=== PATIENT | female | born 1955 | race Caucasian/White ===

== ENCOUNTER 2017-08-11 09:06 | Inpatient (IN) | payer MEDICAID ==
[~2017-08-11] VITALS: Ht 170.2 cm; Wt 60.7 kg
[~2017-08-11 09:06] MED LIST: AMIT50TA3 PO; ARIP1TAB7 PO; ATOR10TA PO; CITA-36 PO; CLON1TAB3 PO; FENO134C PO; IBUP800T24 PO; LAMO150T2 PO; LORA-352 PO
[2017-08-11 10:40] LABS: Basophils # (auto) 0 uL; Basophils % (auto) 0.2 % (0.0-2.0); Eosinophils # (auto) 0.1 uL; Eosinophils % (auto) 0.7 % (0.0-7.0); Hematocrit 37.6 % (36.0-46.0); Hemoglobin 12.9 g/dL (12.2-16.2); Lymphocytes % (auto) 26.2 % (10.0-50.0); Mean Corpuscular Hemoglobin 32.3 pg (28.0-32.0); Mean Corpuscular Hgb Conc. 34.3 g/dL (32.0-36.0); Mean Corpuscular Volume 94.1 fL (80.0-100.0); Monocytes # (auto) 0.7 uL; Monocytes % (auto) 8.4 % (0.0-12.0); Neutrophils % (auto) 64.5 % (37.0-80.0); Nucleated Red Blood Cells % 0.2 %; Platelet Count (auto) 101 10^3/uL (140-450); Red Cell Distribution Width 13.4 % (11.8-14.3); White Blood Cell 7.8 10^3/uL (4.4-10.8)
[2017-08-11 10:42] LABS: Alanine Aminotransferase 43 U/L (13-56); Albumin 3.6 g/dL (3.4-5.0); Alkaline Phosphatase 87 U/L (45-117); Anion Gap 9 (5-15); Aspartate Aminotransferase 92 U/L (15-37); BUN/Creatinine Ratio 8.9; Bilirubin, Total 0.3 mg/dL (0.2-1.0); Blood Urea Nitrogen 8 mg/dL (7-18); Calcium 8.6 mg/dL (8.5-10.1); Carbon Dioxide 26 mmol/L (21-32); Chloride 104 mmol/L (98-107); GFR African American 82 mL/min; GFR Non-African American 68 mL/min; Glucose 121 mg/dL (74-106); Magnesium 2.1 mg/dL (1.6-2.6); Sodium 139 mmol/L (136-145); Total Protein 6.7 g/dL (6.4-8.2)
[2017-08-11 11:46] LABS: Alcohol, Urine < 3.0 mg/dL (0-5); Amphetamine Screen, Urine NEGATIVE (NEGATIVE); Barbiturate Scree,Urine NEGATIVE (NEGATIVE); Benzodiazephine Screen, Urine POSITIVE (NEGATIVE); Cannabinoid Screen, Urine POSITIVE (NEGATIVE); Cocaine Screen, Urine NEGATIVE (NEGATIVE); Opiate Scree,Urine NEGATIVE (NEGATIVE); Phencyclidine Screen, Urine NEGATIVE (NEGATIVE)
[2017-08-11] MEDS ORDERED: POTASSIUM CHLORIDE 8 MEQ TAB PO ONE (12:00)
[2017-08-11] MEDS ORDERED: HYDROcodone-ACET 5/325MG TAB PO PRN (12:15)
[2017-08-11] MEDS ORDERED: ONDANSETRON HCL 4 MG/2 ML VIAL IV PRN (12:15)
[2017-08-11] MEDS ORDERED: ACETAMINOPHEN 325 MG TAB PO PRN (12:15)
[2017-08-11] MEDS ORDERED: FAMOTIDINE 20 MG TAB PO ONE (12:15)
[2017-08-11] MEDS ORDERED: cefTRIAXone 1GM/10ml IVPUSH 10 ML IV ONE (12:15)
[2017-08-11] MEDS ORDERED: MORPHINE SULFATE 4 MG/ML SYR/VIAL IV PRN ×2 (12:15)
[2017-08-11] MEDS ORDERED: NITROGLYCERIN 0.4 MG SL TAB SL PRN (12:15)
[2017-08-11] MEDS ORDERED: DOCUSATE SOD 100 MG CAP PO PRN (12:15)
[2017-08-11 12:57] LABS: Urine Bacteria MANY /hpf (None Seen); Urine Blood Negative /uL (Negative); Urine Mucus FEW (None Seen); Urine Specific Gravity 1.011 (1.001-1.035); Urine WBC 48 /hpf (0 - 5)
[2017-08-11] MEDS: SODIUM CHLOR 0.9% PF (SALINE LOCK) 10ML VIAL/SYR IV SCH ×2 (14:02→21:35)
[2017-08-11] MEDS ORDERED: TEMAZEPAM 15 MG CAP PO PRN (16:00)
[2017-08-11 16:24] LABS: Folate (Folic Acid) 14.56 ng/mL (5.38-24)
[2017-08-11 17:00] VITALS: BP 114/71
[2017-08-11 17:36] VITALS: BP 114/71
[2017-08-11] MEDS ORDERED: DEXTROSE (50%) 50ML SYRG IV PRN (18:00)
[2017-08-11] MEDS: VALPROIC ACID 250 MG/5 ML ORAL SOLN PO SCH (21:35)
[2017-08-11] MEDS: clonazePAM 0.5 MG TAB PO SCH (21:36)
[2017-08-11] MEDS: FAMOTIDINE 20 MG TAB PO SCH (21:36)
[2017-08-11] MEDS: traZODone HCL 50 MG TAB PO SCH (21:36)
[2017-08-11] MEDS: ACCU-CHEK COMFORT CURVE STRIP VI SCH (21:38)
[2017-08-11 22:00] VITALS: BP 108/64
[2017-08-11] MEDS: InsuLIN REG 1unit/0.01ml Soln (100units/ml) SC SCH (22:00)
[2017-08-11] MEDS ORDERED: ACET-6 PO (23:57)
[2017-08-11] MEDS ORDERED: VALP250S16 PO (23:58)
[2017-08-12] MEDS ORDERED: TRAZ50TA2 PO (00:01)
[2017-08-12] MEDS ORDERED: TEMA15CA PO (00:02)
[2017-08-12] MEDS ORDERED: FLUT0.05 NAS (00:04)
[2017-08-12] MEDS ORDERED: CYAN1TAB14 PO (00:04)
[2017-08-12] MEDS ORDERED: PAR20T PO (00:04)
[2017-08-12 05:00] VITALS: BP 122/66
[2017-08-12 06:42] LABS: Basophils # (auto) 0 uL; Basophils % (auto) 0.4 % (0.0-2.0); Eosinophils # (auto) 0.3 uL; Eosinophils % (auto) 3.6 % (0.0-7.0); Hematocrit 40.5 % (36.0-46.0); Hemoglobin 13.8 g/dL (12.2-16.2); Lymphocytes # (auto) 3.8 uL; Lymphocytes % (auto) 47.2 % (10.0-50.0); Mean Corpuscular Hemoglobin 32.5 pg (28.0-32.0); Mean Corpuscular Hgb Conc. 34.1 g/dL (32.0-36.0); Mean Corpuscular Volume 95.2 fL (80.0-100.0); Monocytes # (auto) 0.7 uL; Monocytes % (auto) 9.3 % (0.0-12.0); Neutrophils # (auto) 3.2 uL; Neutrophils % (auto) 39.5 % (37.0-80.0); Nucleated Red Blood Cells % 0.2 %; Platelet Count (auto) 117 10^3/uL (140-450); Red Blood Cells 4.26 10^6/uL (4.0-5.20); Red Cell Distribution Width 13.4 % (11.8-14.3)
[2017-08-12 07:07] LABS: Albumin 3.7 g/dL (3.4-5.0); BUN/Creatinine Ratio 8.9; Bilirubin, Total 0.3 mg/dL (0.2-1.0); Calcium 8.8 mg/dL (8.5-10.1); Potassium 3.9 mmol/L (3.5-5.1); Total Protein 7.2 g/dL (6.4-8.2)
[2017-08-12] MEDS: InsuLIN REG 1unit/0.01ml Soln (100units/ml) SC SCH ×4 (07:07→22:00)
[2017-08-12] MEDS: SODIUM CHLOR 0.9% PF (SALINE LOCK) 10ML VIAL/SYR IV SCH ×3 (07:07→22:04)
[2017-08-12] MEDS: ACCU-CHEK COMFORT CURVE STRIP VI SCH ×4 (07:07→22:04)
[2017-08-12] MEDS: cefTRIAXone 1GM/10ml IVPUSH 10 ML IV SCH (09:52)
[2017-08-12] MEDS: FAMOTIDINE 20 MG TAB PO SCH ×2 (09:53→21:55)
[2017-08-12] MEDS: clonazePAM 0.5 MG TAB PO SCH ×2 (09:53→21:55)
[2017-08-12] MEDS: VALPROIC ACID 250 MG/5 ML ORAL SOLN PO SCH ×2 (09:53→21:54)
[2017-08-12] MEDS: MULTIPLE VITAMIN TAB PO SCH (09:53)
[2017-08-12] MEDS: lamoTRIgine 100 MG TAB PO SCH (09:53)
[2017-08-12] MEDS: PARoxetine 20 MG TAB PO SCH (09:55)
[2017-08-12] MEDS ORDERED: MORPHINE SULFATE 4 MG/ML SYR/VIAL ONE (10:07)
[2017-08-12] MEDS ORDERED: HALOPERIDOL LACTATE 5 MG/ML INJ VIAL IV PRN (10:45)
[2017-08-12] MEDS ORDERED: HALOPERIDOL LACTATE 5 MG/ML INJ VIAL IM ONE (11:00)
[2017-08-12] MEDS ORDERED: LORazepam 0.5 MG TAB PO ONE (11:15)
[2017-08-12] MEDS ORDERED: LORazepam 0.5 MG TAB PO PRN (11:15)
[2017-08-12] MEDS ORDERED: LORazepam 2MG/ML-1ML VIAL IV ONE (13:30)
[2017-08-12] MEDS: traZODone HCL 50 MG TAB PO SCH (21:55)
[2017-08-12 22:38] VITALS: BP 97/62
[2017-08-13 05:34] VITALS: BP 97/63
[2017-08-13 05:56] LABS: Basophils # (auto) 0 uL; Basophils % (auto) 0.4 % (0.0-2.0); Eosinophils # (auto) 0.3 uL; Eosinophils % (auto) 4.6 % (0.0-7.0); Hematocrit 34.5 % (36.0-46.0); Hemoglobin 11.8 g/dL (12.2-16.2); Lymphocytes # (auto) 2.7 uL; Lymphocytes % (auto) 49.4 % (10.0-50.0); Mean Corpuscular Hemoglobin 32.8 pg (28.0-32.0); Mean Corpuscular Hgb Conc. 34.4 g/dL (32.0-36.0); Mean Corpuscular Volume 95.4 fL (80.0-100.0); Monocytes # (auto) 0.6 uL; Monocytes % (auto) 11.4 % (0.0-12.0); Neutrophils # (auto) 1.9 uL; Neutrophils % (auto) 34.2 % (37.0-80.0); Nucleated Red Blood Cells % 0.1 %; Platelet Count (auto) 94 10^3/uL (140-450); Red Blood Cells 3.61 10^6/uL (4.0-5.20); Red Cell Distribution Width 13.7 % (11.8-14.3); White Blood Cell 5.5 10^3/uL (4.4-10.8)
[2017-08-13] MEDS: ACCU-CHEK COMFORT CURVE STRIP VI SCH ×2 (06:34→11:53)
[2017-08-13] MEDS: SODIUM CHLOR 0.9% PF (SALINE LOCK) 10ML VIAL/SYR IV SCH ×3 (06:34→22:00)
[2017-08-13] MEDS: InsuLIN REG 1unit/0.01ml Soln (100units/ml) SC SCH ×2 (06:34→11:30)
[2017-08-13 06:38] LABS: BUN/Creatinine Ratio 7.4; Bilirubin, Total 0.2 mg/dL (0.2-1.0); Calcium 8.2 mg/dL (8.5-10.1); Potassium 3.4 mmol/L (3.5-5.1); Total Protein 5.9 g/dL (6.4-8.2)
[2017-08-13] MEDS: VALPROIC ACID 250 MG/5 ML ORAL SOLN PO SCH ×2 (09:55→22:47)
[2017-08-13] MEDS: cefTRIAXone 1GM/10ml IVPUSH 10 ML IV SCH (09:55)
[2017-08-13] MEDS: clonazePAM 0.5 MG TAB PO SCH ×2 (09:56→22:47)
[2017-08-13] MEDS: MULTIPLE VITAMIN TAB PO SCH (09:56)
[2017-08-13] MEDS: FAMOTIDINE 20 MG TAB PO SCH ×2 (09:56→22:47)
[2017-08-13] MEDS: lamoTRIgine 100 MG TAB PO SCH (09:56)
[2017-08-13] MEDS: PARoxetine 20 MG TAB PO SCH (09:57)
[2017-08-13 10:52] VITALS: BP 101/68
[2017-08-13 13:00] VITALS: BP 96/67
[2017-08-13] MEDS ORDERED: POTASSIUM CHL 10 Meq TABLET PO ONE (15:30)
[2017-08-13 17:00] VITALS: BP 100/66
[2017-08-13 22:00] VITALS: BP 117/66
[2017-08-13] MEDS: CEPHALEXIN 250 MG CAP PO SCH (22:47)
[2017-08-13] MEDS: traZODone HCL 50 MG TAB PO SCH (22:48)
[2017-08-14 05:00] VITALS: BP 105/58
[2017-08-14] MEDS: SODIUM CHLOR 0.9% PF (SALINE LOCK) 10ML VIAL/SYR IV SCH ×3 (06:00→22:00)
[2017-08-14] MEDS: VALPROIC ACID 250 MG/5 ML ORAL SOLN PO SCH (11:12)
[2017-08-14] MEDS: PARoxetine 20 MG TAB PO SCH (11:13)
[2017-08-14] MEDS: lamoTRIgine 100 MG TAB PO SCH (11:13)
[2017-08-14] MEDS: CEPHALEXIN 250 MG CAP PO SCH (11:13)
[2017-08-14] MEDS: MULTIPLE VITAMIN TAB PO SCH (11:13)
[2017-08-14] MEDS: FAMOTIDINE 20 MG TAB PO SCH ×2 (11:14→22:00)
[2017-08-14] MEDS: clonazePAM 0.5 MG TAB PO SCH (11:14)
[2017-08-14 17:00] VITALS: BP 113/53
[2017-08-14] MEDS ORDERED: HALOPERIDOL LACTATE 5 MG/ML INJ VIAL IM PRN (18:15)
[2017-08-14] MEDS ORDERED: HALOPERIDOL LACTATE 5 MG/ML INJ VIAL IV PRN (18:15)
[2017-08-14 22:00] VITALS: BP 99/54
[2017-08-15] MEDS: CEPHALEXIN 250 MG CAP PO SCH ×3 (00:10→21:27)
[2017-08-15] MEDS: traZODone HCL 50 MG TAB PO SCH ×2 (00:10→21:27)
[2017-08-15] MEDS: clonazePAM 0.5 MG TAB PO SCH ×3 (00:11→21:27)
[2017-08-15 05:01] VITALS: BP 114/56
[2017-08-15 09:11] VITALS: BP 115/65
[2017-08-15] MEDS: SODIUM CHLOR 0.9% PF (SALINE LOCK) 10ML VIAL/SYR IV SCH ×3 (10:06→21:28)
[2017-08-15] MEDS: FAMOTIDINE 20 MG TAB PO SCH ×2 (10:07→21:26)
[2017-08-15] MEDS: MULTIPLE VITAMIN TAB PO SCH (10:07)
[2017-08-15] MEDS: VALPROIC ACID 250 MG/5 ML ORAL SOLN PO SCH (10:07)
[2017-08-15] MEDS: PARoxetine 20 MG TAB PO SCH (10:08)
[2017-08-15] MEDS: lamoTRIgine 100 MG TAB PO SCH (10:09)
[2017-08-15 13:11] VITALS: BP 115/61
[2017-08-15 16:40] VITALS: BP 120/61
[2017-08-15 22:00] VITALS: BP 106/53
[2017-08-16 05:00] VITALS: BP 81/59
[2017-08-16] MEDS: SODIUM CHLOR 0.9% PF (SALINE LOCK) 10ML VIAL/SYR IV SCH ×3 (06:19→21:53)
[2017-08-16] MEDS: VALPROIC ACID 250 MG/5 ML ORAL SOLN PO SCH (08:35)
[2017-08-16] MEDS: lamoTRIgine 100 MG TAB PO SCH (08:35)
[2017-08-16] MEDS: MULTIPLE VITAMIN TAB PO SCH (08:35)
[2017-08-16] MEDS: PARoxetine 20 MG TAB PO SCH (08:36)
[2017-08-16] MEDS: clonazePAM 0.5 MG TAB PO SCH ×2 (08:36→21:47)
[2017-08-16] MEDS: FAMOTIDINE 20 MG TAB PO SCH ×2 (08:36→21:47)
[2017-08-16] MEDS: CEPHALEXIN 250 MG CAP PO SCH ×2 (08:42→21:52)
[2017-08-16 09:06] VITALS: BP 108/56
[2017-08-16 12:07] VITALS: BP 100/59
[2017-08-16 16:31] VITALS: BP 98/57
[2017-08-16] MEDS: traZODone HCL 50 MG TAB PO SCH (21:52)
[2017-08-16 22:00] VITALS: BP 92/56
[2017-08-17 05:00] VITALS: BP 102/63
[2017-08-17 06:28] LABS: Basophils # (auto) 0 uL; Basophils % (auto) 0.4 % (0.0-2.0); Eosinophils # (auto) 0.3 uL; Eosinophils % (auto) 4.8 % (0.0-7.0); Hematocrit 37.9 % (36.0-46.0); Lymphocytes # (auto) 2.4 uL; Lymphocytes % (auto) 39.1 % (10.0-50.0); Mean Corpuscular Hemoglobin 32.5 pg (28.0-32.0); Mean Corpuscular Hgb Conc. 34.3 g/dL (32.0-36.0); Mean Corpuscular Volume 94.9 fL (80.0-100.0); Monocytes # (auto) 0.6 uL; Monocytes % (auto) 10.5 % (0.0-12.0); Neutrophils # (auto) 2.7 uL; Neutrophils % (auto) 45.2 % (37.0-80.0); Nucleated Red Blood Cells % 0.1 %; Platelet Count (auto) 120 10^3/uL (140-450); Red Cell Distribution Width 13.4 % (11.8-14.3); White Blood Cell 6.1 10^3/uL (4.4-10.8)
[2017-08-17] MEDS: SODIUM CHLOR 0.9% PF (SALINE LOCK) 10ML VIAL/SYR IV SCH (07:38)
[2017-08-17 09:00] VITALS: BP 90/60
[2017-08-17] MEDS: FAMOTIDINE 20 MG TAB PO SCH (10:53)
[2017-08-17] MEDS: CEPHALEXIN 250 MG CAP PO SCH (10:54)
[2017-08-17] MEDS: MULTIPLE VITAMIN TAB PO SCH (10:54)
[2017-08-17] MEDS: clonazePAM 0.5 MG TAB PO SCH (10:54)
[2017-08-17] MEDS: PARoxetine 20 MG TAB PO SCH (10:54)
[2017-08-17] MEDS: lamoTRIgine 100 MG TAB PO SCH (10:54)
[2017-08-17 13:00] VITALS: BP 138/74
== END 2017-08-17 12:30 | disposition home or self-care (01) | DRG 812 ==
LOC: EDBD 09:06 → EDUNIT# 09:06 → ER 09:06 → TELE 09:07 → TELE-WESTW 15:58 → UNDODISIN 08-12 09:00 → WEST WING 08-13 15:41
PROVIDERS: ADMIT Internal Medicine; ATTEND Internal Medicine
DX: T43.211A Poisoning by selective serotonin and norepinephrine reuptake inhibitors, accidental (unintentional), initial encounter (principal); G92 Toxic encephalopathy; D69.59 Other secondary thrombocytopenia; F20.9 Schizophrenia, unspecified; D69.6 Thrombocytopenia, unspecified; F31.9 Bipolar disorder, unspecified; N39.0 Urinary tract infection, site not specified; N18.2 Chronic kidney disease, stage 2 (mild); K59.00 Constipation, unspecified; R26.9 Unspecified abnormalities of gait and mobility; E87.6 Hypokalemia; F41.9 Anxiety disorder, unspecified; G47.00 Insomnia, unspecified; I73.9 Peripheral vascular disease, unspecified; Z87.891 Personal history of nicotine dependence; Z79.899 Other long term (current) drug therapy; Z98.51 Tubal ligation status; Y92.89 Other specified places as the place of occurrence of the external cause
CPT/HCPCS: 36415; 70450; 70551; 80053; 80164; 80307; 80320; 81001; 82607; 82746; 82962; 83735; 84132; 84443; 84484; 85025; 87086; 93005; 93306; 95819; 96374; 99291; J1815

== ENCOUNTER 2017-11-24 09:28 | Emergency (ER) | payer MEDICAID ==
[~2017-11-24] VITALS: Ht 167.6 cm; Wt 54.4 kg
[~2017-11-24 09:28] MED LIST changes: +ACET-6 PO; -AMIT50TA3 PO; -ARIP1TAB7 PO; -ATOR10TA PO; -CITA-36 PO; -CLON1TAB3 PO; +CLON1TAB4 PO; +CYAN1TAB14 PO; -FENO134C PO; +FLUT0.05 NAS; -IBUP800T24 PO; -LORA-352 PO; +PAR20T PO; +TEMA15CA PO; +TRAZ50TA2 PO
[2017-11-24] MEDS ORDERED: SODIUM CHLORIDE 0.9% 1,000 ML IV ONE (09:44)
[2017-11-24] MEDS ORDERED: ONDANSETRON HCL 4 MG/2 ML VIAL IV ONE (09:45)
[2017-11-24 10:57] LABS: Urine Bacteria MODERATE /hpf (None Seen); Urine Blood Trace /uL (Negative)
[2017-11-24 10:58] LABS: Urine WBC 30 /hpf (0 - 5)
[2017-11-24 11:09] LABS: Basophils # (auto) 0 uL; Basophils % (auto) 0.9 % (0.0-2.0); Eosinophils # (auto) 0.1 uL; Eosinophils % (auto) 2.2 % (0.0-7.0); Hematocrit 37.9 % (36.0-46.0); Hemoglobin 12.8 g/dL (12.2-16.2); Lymphocytes # (auto) 0.7 uL; Lymphocytes % (auto) 24.6 % (10.0-50.0); Mean Corpuscular Hemoglobin 33.2 pg (28.0-32.0); Mean Corpuscular Hgb Conc. 33.9 g/dL (32.0-36.0); Monocytes # (auto) 0.1 uL; Monocytes % (auto) 4.4 % (0.0-12.0); Neutrophils # (auto) 1.9 uL; Neutrophils % (auto) 67.9 % (37.0-80.0); Nucleated Red Blood Cells % 0.1 %; Platelet Count (auto) 97 10^3/uL (140-450); Red Blood Cells 3.86 10^6/uL (4.0-5.20); Red Cell Distribution Width 14.8 % (11.8-14.3); White Blood Cell 2.8 10^3/uL (4.4-10.8)
[2017-11-24 11:29] LABS: BUN/Creatinine Ratio 7.8; Bilirubin, Total 1.5 mg/dL (0.2-1.0); Calcium 8.4 mg/dL (8.5-10.1); Potassium 4.1 mmol/L (3.5-5.1); Total Protein 6.9 g/dL (6.4-8.2)
[2017-11-24 13:01] VITALS: BP 140/70
== END 2017-11-24 13:06 | disposition home or self-care (01) ==
LOC: ER 09:28 → EDBD 09:28 → ER 13:06
DX: N39.0 Urinary tract infection, site not specified (principal); R53.1 Weakness; R19.7 Diarrhea, unspecified; Z88.2 Allergy status to sulfonamides; Z91.010 Allergy to peanuts; Z90.710 Acquired absence of both cervix and uterus; Z98.51 Tubal ligation status
CPT/HCPCS: 36415; 80053; 81001; 85025; 94761; 96361; 96374; 99284; J2405

== ENCOUNTER 2018-07-11 12:30 | Emergency (ER) | payer MEDICAID ==
[~2018-07-11] VITALS: Ht 30.5 cm; Wt 0.5 kg
[2018-07-11] MEDS ORDERED: SODIUM CHLORIDE 0.9% 1,000 ML IVB ONE (13:44)
[2018-07-11 14:04] LABS: Basophils # (auto) 0.1 uL; Basophils % (auto) 1.5 % (0.0-2.0); Eosinophils # (auto) 0.1 uL; Eosinophils % (auto) 1.6 % (0.0-7.0); Hematocrit 37.2 % (36.0-46.0); Hemoglobin 12.6 g/dL (12.2-16.2); Lymphocytes # (auto) 2.9 uL; Lymphocytes % (auto) 49.3 % (10.0-50.0); Mean Corpuscular Hemoglobin 33.8 pg (28.0-32.0); Mean Corpuscular Volume 99.5 fL (80.0-100.0); Monocytes # (auto) 0.3 uL; Monocytes % (auto) 5.7 % (0.0-12.0); Neutrophils # (auto) 2.5 uL; Neutrophils % (auto) 41.9 % (37.0-80.0); Nucleated Red Blood Cells % 0.1 %; Platelet Count (auto) 210 10^3/uL (140-450); Red Blood Cells 3.74 10^6/uL (4.0-5.20); Red Cell Distribution Width 13.6 % (11.8-14.3); White Blood Cell 5.9 10^3/uL (4.4-10.8)
[2018-07-11 14:21] LABS: Albumin 3.4 g/dL (3.4-5.0); BUN/Creatinine Ratio 16.7; Calcium 7.9 mg/dL (8.5-10.1); Magnesium 2.2 mg/dL (1.6-2.6); Potassium 4.1 mmol/L (3.5-5.1)
[2018-07-11 14:22] LABS: Salicylate < 1.7 mg/dL (2.8-20.0)
[2018-07-11 14:27] LABS: Bilirubin, Total 0.2 mg/dL (0.2-1.0); Total Protein 8.4 g/dL (6.4-8.2)
[2018-07-11 14:34] LABS: Acetaminophen < 2.0 ug/mL (10-30)
[2018-07-11 14:47] LABS: Urine Bacteria NONE SEEN /hpf (None Seen); Urine Blood Negative /uL (Negative); Urine Specific Gravity 1.004 (1.001-1.035); Urine WBC 1 /hpf (0 - 5)
[2018-07-11 14:52] LABS: Amphetamine Screen, Urine NEGATIVE (NEGATIVE); Barbiturate Scree,Urine NEGATIVE (NEGATIVE); Benzodiazephine Screen, Urine NEGATIVE (NEGATIVE); Cannabinoid Screen, Urine POSITIVE (NEGATIVE); Cocaine Screen, Urine NEGATIVE (NEGATIVE); Opiate Scree,Urine NEGATIVE (NEGATIVE); Phencyclidine Screen, Urine NEGATIVE (NEGATIVE)
[2018-07-11] MEDS ORDERED: LORazepam 2MG/ML-1ML VIAL IV ONE (15:15)
[2018-07-11] MEDS ORDERED: MULTIPLE VITAMIN 10 ML, MAGNESIUM SULF SDV 50% 8 MEQ, THIAMINE INJ 100 MG in SODIUM CHL... IV SCH ×2 (18:00→18:15)
[2018-07-11 18:20] LABS: Blood Alcohol 398.6 mg/dL (0-5)
[2018-07-11 19:30] VITALS: BP 115/61
[2018-07-12] MEDS ORDERED: MULTIPLE VITAMIN 10 ML, MAGNESIUM SULF SDV 50% 8 MEQ, THIAMINE INJ 100 MG in SODIUM CHL... IV SCH (12:00)
== END 2018-07-11 19:57 | disposition left against medical advice (07) ==
LOC: ER 12:30 → EDBD 12:30 → ER 19:57
DX: F10.129 Alcohol abuse with intoxication, unspecified (principal); R41.82 Altered mental status, unspecified; F31.9 Bipolar disorder, unspecified; F41.9 Anxiety disorder, unspecified; F20.9 Schizophrenia, unspecified; Z90.710 Acquired absence of both cervix and uterus; Z98.51 Tubal ligation status; Y90.9 Presence of alcohol in blood, level not specified
CPT/HCPCS: 36415; 51702; 71045; 80053; 80307; 80320; 80329; 81001; 83735; 85025; 93005; 94761; 96361; 96365; 96375; 99284; J2060; J3411; J3475; J7030

== ENCOUNTER 2018-08-22 19:22 | Emergency (ER) | payer MEDICAID ==
[~2018-08-22] VITALS: Ht 167.6 cm; Wt 54.4 kg
[2018-08-22 20:32] VITALS: BP 119/66
[2018-08-22 20:47] LABS: Basophils # (auto) 0 uL; Basophils % (auto) 0.5 % (0.0-2.0); Eosinophils # (auto) 0.1 uL; Eosinophils % (auto) 1.4 % (0.0-7.0); Hemoglobin 12.9 g/dL (12.2-16.2); Lymphocytes # (auto) 2.3 uL; Lymphocytes % (auto) 43.1 % (10.0-50.0); Mean Corpuscular Hemoglobin 33.4 pg (28.0-32.0); Mean Corpuscular Volume 98.4 fL (80.0-100.0); Monocytes # (auto) 0.6 uL; Monocytes % (auto) 10.6 % (0.0-12.0); Neutrophils # (auto) 2.4 uL; Neutrophils % (auto) 44.4 % (37.0-80.0); Nucleated Red Blood Cells % 0.1 %; Platelet Count (auto) 122 10^3/uL (140-450); Red Blood Cells 3.86 10^6/uL (4.0-5.20); Red Cell Distribution Width 13.7 % (11.8-14.3); White Blood Cell 5.3 10^3/uL (4.4-10.8)
[2018-08-22 21:08] LABS: Albumin 3.6 g/dL (3.4-5.0); BUN/Creatinine Ratio 13.1; Calcium 8.3 mg/dL (8.5-10.1)
[2018-08-22 21:12] LABS: Bilirubin, Total 0.3 mg/dL (0.2-1.0); Total Protein 8.8 g/dL (6.4-8.2)
== END 2018-08-22 21:33 | disposition left against medical advice (07) ==
LOC: EDBD 19:22 → ER 19:22
DX: S01.81XA Laceration without foreign body of other part of head, initial encounter (principal); F12.90 Cannabis use, unspecified, uncomplicated; F10.229 Alcohol dependence with intoxication, unspecified; G92 Toxic encephalopathy; Z88.2 Allergy status to sulfonamides; Z79.899 Other long term (current) drug therapy; Z53.29 Procedure and treatment not carried out because of patient's decision for other reasons; W18.39XA Other fall on same level, initial encounter; Y93.89 Activity, other specified; Y99.8 Other external cause status; Y92.89 Other specified places as the place of occurrence of the external cause
CPT/HCPCS: 36415; 70450; 70486; 72125; 80053; 80320; 85025; 93005; 99284; J7030

== ENCOUNTER 2018-10-26 16:17 | Emergency (ER) | payer MEDICAID ==
[~2018-10-26] VITALS: Ht 160 cm; Wt 59.0 kg
[~2018-10-26 16:17] MED LIST changes: +CLON1TAB10 PO; -CLON1TAB4 PO
[2018-10-26] MEDS ORDERED: SODIUM CHLORIDE 0.9% 1,000 ML IVB ONE (16:27)
[2018-10-26 17:30] LABS: Basophils # (auto) 0.1 uL; Eosinophils # (auto) 0.1 uL; Monocytes # (auto) 0.3 uL; Neutrophils # (auto) 2.4 uL; Nucleated Red Blood Cells % 0.1 %; Red Cell Distribution Width 14.8 % (11.8-14.3); White Blood Cell 5.1 10^3/uL (4.4-10.8)
[2018-10-26 17:32] LABS: Basophils % (auto) 1.7 % (0.0-2.0); Eosinophils % (auto) 2.7 % (0.0-7.0); Hematocrit 35.4 % (36.0-46.0); Hemoglobin 11.8 g/dL (12.2-16.2); Lymphocytes # (auto) 2.2 uL; Lymphocytes % (auto) 42.7 % (10.0-50.0); Mean Corpuscular Hemoglobin 34.1 pg (28.0-32.0); Mean Corpuscular Hgb Conc. 33.4 g/dL (32.0-36.0); Mean Corpuscular Volume 102.2 fL (80.0-100.0); Monocytes % (auto) 6.1 % (0.0-12.0); Neutrophils % (auto) 46.8 % (37.0-80.0); Platelet Count (auto) 223 10^3/uL (140-450); Red Blood Cells 3.47 10^6/uL (4.0-5.20)
[2018-10-26 17:35] LABS: Albumin 3.4 g/dL (3.4-5.0); Calcium 8.5 mg/dL (8.5-10.1); Potassium 4.4 mmol/L (3.5-5.1)
[2018-10-26 17:44] LABS: BUN/Creatinine Ratio 10.3; Bilirubin, Total 0.3 mg/dL (0.2-1.0); Total Protein 8.6 g/dL (6.4-8.2)
[2018-10-26] MEDS ORDERED: TEMAZEPAM 15 MG CAP PO ONE (23:30)
[2018-10-26] MEDS ORDERED: clonazePAM 0.5 MG TAB PO ONE (23:30)
[2018-10-27 07:08] LABS: Amphetamine Screen, Urine NEGATIVE (NEGATIVE); Barbiturate Scree,Urine NEGATIVE (NEGATIVE); Benzodiazephine Screen, Urine NEGATIVE (NEGATIVE); Cannabinoid Screen, Urine POSITIVE (NEGATIVE); Cocaine Screen, Urine NEGATIVE (NEGATIVE); Opiate Scree,Urine NEGATIVE (NEGATIVE); Phencyclidine Screen, Urine NEGATIVE (NEGATIVE)
[2018-10-27 08:05] LABS: Basophils # (auto) 0.1 uL; Basophils % (auto) 1.1 % (0.0-2.0); Eosinophils # (auto) 0.1 uL; Eosinophils % (auto) 1.6 % (0.0-7.0); Hematocrit 36.3 % (36.0-46.0); Hemoglobin 12.2 g/dL (12.2-16.2); Lymphocytes # (auto) 1.3 uL; Lymphocytes % (auto) 25.7 % (10.0-50.0); Mean Corpuscular Hgb Conc. 33.7 g/dL (32.0-36.0); Mean Corpuscular Volume 100.7 fL (80.0-100.0); Monocytes # (auto) 0.5 uL; Monocytes % (auto) 8.9 % (0.0-12.0); Neutrophils # (auto) 3.3 uL; Neutrophils % (auto) 62.7 % (37.0-80.0); Platelet Count (auto) 183 10^3/uL (140-450); Red Cell Distribution Width 14.5 % (11.8-14.3); White Blood Cell 5.2 10^3/uL (4.4-10.8)
[2018-10-27 08:20] VITALS: BP 147/67
[2018-10-27 08:21] LABS: Anion Gap 8 (5-15); BUN/Creatinine Ratio 12.3; Blood Alcohol < 3.0 mg/dL (0-5); Blood Urea Nitrogen 7 mg/dL (7-18); Calcium 8.3 mg/dL (8.5-10.1); Carbon Dioxide 26 mmol/L (21-32); Chloride 108 mmol/L (98-107); GFR African American 138 mL/min; GFR Non-African American 114 mL/min; Glucose 117 mg/dL (74-106); Potassium 3.6 mmol/L (3.5-5.1); Sodium 142 mmol/L (136-145)
[2018-10-27 08:24] LABS: Alanine Aminotransferase 44 U/L (13-56); Alkaline Phosphatase 259 U/L (45-117); Aspartate Aminotransferase 55 U/L (15-37); Bilirubin, Total 0.3 mg/dL (0.2-1.0); Total Protein 7.5 g/dL (6.4-8.2)
== END 2018-10-27 10:12 | disposition home or self-care (01) ==
LOC: EDBD 16:17 → ER 16:25
DX: S00.81XA Abrasion of other part of head, initial encounter (principal); F10.229 Alcohol dependence with intoxication, unspecified; F12.90 Cannabis use, unspecified, uncomplicated; Z88.2 Allergy status to sulfonamides; Z79.899 Other long term (current) drug therapy; Z90.710 Acquired absence of both cervix and uterus; Z98.51 Tubal ligation status; W18.39XA Other fall on same level, initial encounter; Y93.89 Activity, other specified; Y99.8 Other external cause status; Y92.89 Other specified places as the place of occurrence of the external cause
CPT/HCPCS: 36415; 70450; 80053; 80307; 80320; 85025; 99284; J7030

== ENCOUNTER 2021-02-07 20:38 | Emergency (ER) | payer MEDICAID ==
[~2021-02-07] VITALS: Ht 170.2 cm; Wt 59.0 kg
[2021-02-07 20:38] VITALS: BP 128/69
[~2021-02-07 20:38] MED LIST changes: +CLON-853 PO; -CLON1TAB10 PO
[2021-02-07 21:18] LABS: Basophils # (auto) 0 10 ^3/uL (0-0.2); Basophils % (auto) 0.3 % (0.0-2.0); Hemoglobin 12.5 g/dL (12.2-16.2); Lymphocytes # (auto) 1.6 10 ^3/uL (0.4-5.4); Monocytes # (auto) 0.9 10 ^3/uL (0-1.3); Neutrophils # (auto) 5.8 10 ^3/uL (1.6-8.6); White Blood Cell 8.5 10^3/uL (4.4-10.8)
[2021-02-07 21:19] LABS: Eosinophils # (auto) 0.2 10 ^3/uL (0-0.8); Eosinophils % (auto) 2.8 % (0.0-7.0); Hematocrit 36.3 % (36.0-46.0); Lymphocytes % (auto) 18.6 % (10.0-50.0); Mean Corpuscular Hemoglobin 39.4 pg (28.0-32.0); Mean Corpuscular Hgb Conc. 34.4 g/dL (32.0-36.0); Mean Corpuscular Volume 114.4 fL (80.0-100.0); Monocytes % (auto) 10.3 % (0.0-12.0); Nucleated Red Blood Cells % 0.2 %; Red Blood Cells 3.18 10^6/uL (4.0-5.20); Red Cell Distribution Width 14.8 % (11.8-14.3)
[2021-02-07 21:28] LABS: Albumin 1.8 g/dL (3.4-5.0); Calcium 8.6 mg/dL (8.5-10.1)
[2021-02-07 21:30] LABS: BUN/Creatinine Ratio 10.3
[2021-02-07 21:32] LABS: Bilirubin, Total 7.1 mg/dL (0.2-1.0); Total Protein 8.5 g/dL (6.4-8.2)
== END 2021-02-07 22:40 | disposition left against medical advice (07) ==
LOC: ER 20:38
DX: R19.09 Other intra-abdominal and pelvic swelling, mass and lump (principal); Z53.21 Procedure and treatment not carried out due to patient leaving prior to being seen by health care provider
CPT/HCPCS: 36415; 80053; 82140; 85025

== ENCOUNTER 2021-02-08 14:45 | Inpatient (IN) | payer MEDICAID ==
[~2021-02-08] VITALS: Ht 165.1 cm; Wt 59.6 kg
[2021-02-08 16:37] LABS: Basophils # (auto) 0 10 ^3/uL (0-0.2); Basophils % (auto) 0.1 % (0.0-2.0); Eosinophils # (auto) 0 10 ^3/uL (0-0.8); Hemoglobin 10.9 g/dL (12.2-16.2); Lymphocytes # (auto) 0.8 10 ^3/uL (0.4-5.4)
[2021-02-08 16:39] LABS: Hematocrit 31.8 % (36.0-46.0); Lymphocytes % (auto) 7.6 % (10.0-50.0); Mean Corpuscular Hemoglobin 39.5 pg (28.0-32.0); Mean Corpuscular Hgb Conc. 34.4 g/dL (32.0-36.0); Mean Corpuscular Volume 114.8 fL (80.0-100.0); Monocytes % (auto) 9.2 % (0.0-12.0); Neutrophils # (auto) 8.8 10 ^3/uL (1.6-8.6); Neutrophils % (auto) 83.1 % (37.0-80.0); Red Blood Cells 2.77 10^6/uL (4.0-5.20); Red Cell Distribution Width 14.8 % (11.8-14.3); White Blood Cell 10.5 10^3/uL (4.4-10.8)
[2021-02-08 16:54] LABS: Albumin 1.3 g/dL (3.4-5.0); Anion Gap 11 (5-15); Blood Alcohol < 3.0 mg/dL (0-5); Blood Urea Nitrogen 12 mg/dL (7-18); Calcium 8.4 mg/dL (8.5-10.1); Carbon Dioxide 19 mmol/L (21-32); Chloride 101 mmol/L (98-107); Glucose 142 mg/dL (74-106); Lipase 73 U/L (73-393); Potassium 4.4 mmol/L (3.5-5.1); Sodium 131 mmol/L (136-145)
[2021-02-08 16:57] LABS: Alanine Aminotransferase 43 U/L (13-56); Amylase 19 U/L (25-115); Aspartate Aminotransferase 87 U/L (15-37); GFR African American 85 mL/min; GFR Non-African American 71 mL/min
[2021-02-08 16:59] LABS: Alkaline Phosphatase 135 U/L (45-117); Bilirubin, Total 7.8 mg/dL (0.2-1.0); Total Protein 6.6 g/dL (6.4-8.2)
[2021-02-08] MEDS ORDERED: ONDANSETRON HCL 4 MG/2 ML VIAL IV PRN (21:15)
[2021-02-08] MEDS ORDERED: clonazePAM 0.5 MG TAB PO PRN (21:15)
[2021-02-08] MEDS ORDERED: LACTULOSE 20Gm/30ML SOLN PO ONE (21:15)
[2021-02-08] MEDS ORDERED: TEMAZEPAM 15 MG CAP PO PRN (21:15)
[2021-02-08] MEDS: lamoTRIgine 100 MG TAB PO SCH (22:22)
[2021-02-08] MEDS ORDERED: cefTRIAXone 1GM/50ML D5W 50 ML IV ONE (23:15)
[2021-02-08] MEDS ORDERED: ALBUMIN 5% 250 ML IV ONE (23:15)
[2021-02-08] MEDS ORDERED: SODIUM CHLORIDE 0.9% 500 ML IV ONE (23:15)
[2021-02-08 23:27] VITALS: BP 106/58
[2021-02-08 23:30] VITALS: BP 106/58
[2021-02-09] VITALS (7 sets, daily range): BP systolic 102–112; BP diastolic 59–67
[2021-02-09 06:02] LABS: Basophils # (auto) 0 10 ^3/uL (0-0.2); Eosinophils # (auto) 0 10 ^3/uL (0-0.8); Lymphocytes # (auto) 1.2 10 ^3/uL (0.4-5.4); Monocytes # (auto) 1.2 10 ^3/uL (0-1.3)
[2021-02-09 06:05] LABS: Basophils % (auto) 0.1 % (0.0-2.0); Eosinophils % (auto) 0.3 % (0.0-7.0); Hematocrit 28.3 % (36.0-46.0); Hemoglobin 9.9 g/dL (12.2-16.2); Lymphocytes % (auto) 13.9 % (10.0-50.0); Mean Corpuscular Volume 114.2 fL (80.0-100.0); Monocytes % (auto) 14.4 % (0.0-12.0); Neutrophils # (auto) 5.9 10 ^3/uL (1.6-8.6); Neutrophils % (auto) 71.3 % (37.0-80.0); Red Blood Cells 2.48 10^6/uL (4.0-5.20); Red Cell Distribution Width 14.6 % (11.8-14.3); White Blood Cell 8.3 10^3/uL (4.4-10.8)
[2021-02-09 06:18] LABS: Potassium 3.9 mmol/L (3.5-5.1)
[2021-02-09 06:25] LABS: Albumin 1.5 g/dL (3.4-5.0); BUN/Creatinine Ratio 20.3; Bilirubin, Total 6.8 mg/dL (0.2-1.0); Calcium 7.9 mg/dL (8.5-10.1)
[2021-02-09 06:30] LABS: INR 1.94 (0.9-1.15); Partial Thromboplastin Time 41.4 sec (23.6-33.0)
[2021-02-09] MEDS: PARoxetine 20 MG TAB PO SCH (10:10)
[2021-02-09] MEDS: PANTOPRAZOLE 40 MG TAB PO SCH (10:10)
[2021-02-09] MEDS ORDERED: PHYTONADIONE (VIT K)10 MG/ML 1ML VIAL SUBCUT ONE (11:00)
[2021-02-09] MEDS: FUROSEMIDE 20 MG TAB PO SCH (11:48)
[2021-02-09 12:00] LABS: INR 1.93 (0.9-1.15)
[2021-02-09] MEDS: FOLIC ACID 1 MG, MULTIPLE VITAMIN 10 ML, MAGNESIUM SULF SDV 50% 8 MEQ, THIAMINE INJ 100... INJ SCH ×5 (12:15)
[2021-02-09] MEDS: LACTULOSE 20Gm/30ML SOLN PO SCH (21:33)
[2021-02-09] MEDS: lamoTRIgine 100 MG TAB PO SCH (21:33)
[2021-02-09] MEDS: cefTRIAXone 1GM/50ML D5W 50 ML IV SCH (21:33)
[2021-02-10 05:00] VITALS: BP 115/59
[2021-02-10 07:01] LABS: Basophils # (auto) 0 10 ^3/uL (0-0.2); Basophils % (auto) 0.2 % (0.0-2.0); Eosinophils # (auto) 0.1 10 ^3/uL (0-0.8)
[2021-02-10 07:03] LABS: Eosinophils % (auto) 0.8 % (0.0-7.0); Hematocrit 28.9 % (36.0-46.0); Lymphocytes # (auto) 1.4 10 ^3/uL (0.4-5.4); Lymphocytes % (auto) 12.3 % (10.0-50.0); Mean Corpuscular Hemoglobin 39.4 pg (28.0-32.0); Mean Corpuscular Hgb Conc. 34.7 g/dL (32.0-36.0); Monocytes # (auto) 1.7 10 ^3/uL (0-1.3); Monocytes % (auto) 14.5 % (0.0-12.0); Neutrophils # (auto) 8.3 10 ^3/uL (1.6-8.6); Neutrophils % (auto) 72.2 % (37.0-80.0); Red Blood Cells 2.55 10^6/uL (4.0-5.20); Red Cell Distribution Width 14.4 % (11.8-14.3); White Blood Cell 11.5 10^3/uL (4.4-10.8)
[2021-02-10 07:12] LABS: Albumin 1.4 g/dL (3.4-5.0); BUN/Creatinine Ratio 23.6; Calcium 8.1 mg/dL (8.5-10.1); Potassium 3.6 mmol/L (3.5-5.1)
[2021-02-10 07:15] LABS: Bilirubin, Total 7.5 mg/dL (0.2-1.0); Total Protein 5.8 g/dL (6.4-8.2)
[2021-02-10 07:20] LABS: Mean Corpuscular Volume 113.6 fL (80.0-100.0)
[2021-02-10 07:25] LABS: INR 1.73 (0.9-1.15)
[2021-02-10 08:15] VITALS: BP 116/67
[2021-02-10 08:39] VITALS: BP 116/67
[2021-02-10] MEDS: PANTOPRAZOLE 40 MG TAB PO SCH (09:52)
[2021-02-10] MEDS: PARoxetine 20 MG TAB PO SCH (09:52)
[2021-02-10] MEDS: FUROSEMIDE 20 MG TAB PO SCH (09:52)
[2021-02-10] MEDS ORDERED: PHYTONADIONE (VIT K)10 MG/ML 1ML VIAL SUBCUT ONE (10:30)
[2021-02-10] MEDS: FOLIC ACID 1 MG, MULTIPLE VITAMIN 10 ML, MAGNESIUM SULF SDV 50% 8 MEQ, THIAMINE INJ 100... INJ SCH ×5 (12:32)
[2021-02-10 12:43] VITALS: BP 119/64
[2021-02-10 16:38] VITALS: BP 114/69
[2021-02-10] MEDS: cefTRIAXone 1GM/50ML D5W 50 ML IV SCH (21:38)
[2021-02-10] MEDS: lamoTRIgine 100 MG TAB PO SCH (21:39)
[2021-02-10] MEDS: LACTULOSE 20Gm/30ML SOLN PO SCH (21:39)
[2021-02-10 22:00] VITALS: BP 109/60
[2021-02-11 05:00] VITALS: BP 128/64
[2021-02-11 06:55] LABS: Basophils # (auto) 0 10 ^3/uL (0-0.2); Eosinophils # (auto) 0.1 10 ^3/uL (0-0.8); Monocytes # (auto) 1.5 10 ^3/uL (0-1.3); Red Blood Cells 2.64 10^6/uL (4.0-5.20); White Blood Cell 9.8 10^3/uL (4.4-10.8)
[2021-02-11 06:57] LABS: Basophils % (auto) 0.1 % (0.0-2.0); Hemoglobin 10.5 g/dL (12.2-16.2); Lymphocytes # (auto) 1.1 10 ^3/uL (0.4-5.4); Lymphocytes % (auto) 11.7 % (10.0-50.0); Mean Corpuscular Hemoglobin 39.7 pg (28.0-32.0); Mean Corpuscular Hgb Conc. 34.9 g/dL (32.0-36.0); Monocytes % (auto) 15.6 % (0.0-12.0); Neutrophils % (auto) 71.6 % (37.0-80.0)
[2021-02-11 07:00] LABS: Mean Corpuscular Volume 113.7 fL (80.0-100.0)
[2021-02-11 07:08] LABS: Albumin 1.4 g/dL (3.4-5.0); Calcium 7.8 mg/dL (8.5-10.1); Potassium 3.7 mmol/L (3.5-5.1)
[2021-02-11 07:09] LABS: INR 1.7 (0.9-1.15); Partial Thromboplastin Time 37.3 sec (23.6-33.0)
[2021-02-11 07:13] LABS: BUN/Creatinine Ratio 21.4; Bilirubin, Total 7.9 mg/dL (0.2-1.0)
[2021-02-11 08:30] VITALS: BP 103/52
[2021-02-11] MEDS: PARoxetine 20 MG TAB PO SCH (10:42)
[2021-02-11] MEDS: PANTOPRAZOLE 40 MG TAB PO SCH (10:42)
[2021-02-11] MEDS: FOLIC ACID 1 MG, MULTIPLE VITAMIN 10 ML, MAGNESIUM SULF SDV 50% 8 MEQ, THIAMINE INJ 100... INJ SCH ×5 (12:21)
[2021-02-11 12:30] VITALS: BP 113/70
[2021-02-11] MEDS ORDERED: PHYTONADIONE (VIT K)10 MG/ML 1ML VIAL SUBCUT ONE (12:30)
[2021-02-11 17:00] VITALS: BP 107/59
[2021-02-11] MEDS: lamoTRIgine 100 MG TAB PO SCH (21:27)
[2021-02-11] MEDS: LACTULOSE 20Gm/30ML SOLN PO SCH (21:27)
[2021-02-11] MEDS: cefTRIAXone 1GM/50ML D5W 50 ML IV SCH (21:27)
[2021-02-11 22:00] VITALS: BP 106/53
[2021-02-12 05:00] VITALS: BP 111/65
[2021-02-12 08:01] LABS: INR 1.64 (0.9-1.15); Partial Thromboplastin Time 36.6 sec (23.6-33.0)
[2021-02-12 09:00] VITALS: BP 113/68
[2021-02-12] MEDS: PANTOPRAZOLE 40 MG TAB PO SCH (10:00)
[2021-02-12] MEDS: PARoxetine 20 MG TAB PO SCH (10:00)
[2021-02-12] MEDS: FOLIC ACID 1 MG, MULTIPLE VITAMIN 10 ML, MAGNESIUM SULF SDV 50% 8 MEQ, THIAMINE INJ 100... INJ SCH ×5 (12:30)
[2021-02-12 13:00] VITALS: BP 105/59
[2021-02-12 22:05] VITALS: BP 119/65
[2021-02-12] MEDS: lamoTRIgine 100 MG TAB PO SCH (23:18)
[2021-02-12] MEDS: cefTRIAXone 1GM/50ML D5W 50 ML IV SCH (23:18)
[2021-02-12] MEDS: LACTULOSE 20Gm/30ML SOLN PO SCH (23:18)
[2021-02-13 05:11] VITALS: BP 133/72
[2021-02-13 06:58] LABS: INR 1.65 (0.9-1.15); Partial Thromboplastin Time 34.5 sec (23.6-33.0)
[2021-02-13 08:54] VITALS: BP 120/63
[2021-02-13] MEDS: PARoxetine 20 MG TAB PO SCH (12:34)
[2021-02-13] MEDS: PANTOPRAZOLE 40 MG TAB PO SCH (12:34)
[2021-02-13] MEDS: rifAXIMin 550 MG TAB PO SCH ×2 (12:35→21:30)
[2021-02-13 13:00] VITALS: BP 121/67
[2021-02-13] MEDS: LACTULOSE 20Gm/30ML SOLN PO SCH ×2 (15:12→21:30)
[2021-02-13] MEDS: FOLIC ACID 1 MG, MULTIPLE VITAMIN 10 ML, MAGNESIUM SULF SDV 50% 8 MEQ, THIAMINE INJ 100... INJ SCH ×5 (15:18)
[2021-02-13 17:00] VITALS: BP 115/67
[2021-02-13] MEDS: cefTRIAXone 1GM/50ML D5W 50 ML IV SCH (21:30)
[2021-02-13] MEDS: lamoTRIgine 100 MG TAB PO SCH (21:30)
[2021-02-13 22:00] VITALS: BP 114/62
[2021-02-14 05:00] VITALS: BP 119/49
[2021-02-14] MEDS: LACTULOSE 20Gm/30ML SOLN PO SCH ×3 (06:15→22:02)
[2021-02-14] MEDS: PARoxetine 20 MG TAB PO SCH (11:11)
[2021-02-14] MEDS: PANTOPRAZOLE 40 MG TAB PO SCH (11:12)
[2021-02-14] MEDS: rifAXIMin 550 MG TAB PO SCH ×2 (11:12→22:03)
[2021-02-14] MEDS: FOLIC ACID 1 MG, MULTIPLE VITAMIN 10 ML, MAGNESIUM SULF SDV 50% 8 MEQ, THIAMINE INJ 100... INJ SCH ×5 (12:23)
[2021-02-14 13:00] VITALS: BP 132/72
[2021-02-14 17:00] VITALS: BP 135/75
[2021-02-14 21:30] VITALS: BP 111/57
[2021-02-14] MEDS ORDERED: LORazepam 2MG/ML-1ML VIAL IV PRN (21:45)
[2021-02-14] MEDS: lamoTRIgine 100 MG TAB PO SCH (22:02)
[2021-02-14] MEDS: cefTRIAXone 1GM/50ML D5W 50 ML IV SCH (22:02)
[2021-02-15 05:00] VITALS: BP 122/66
[2021-02-15] MEDS: LACTULOSE 20Gm/30ML SOLN PO SCH ×3 (06:55→22:10)
[2021-02-15 08:00] VITALS: BP 105/59
[2021-02-15 09:00] VITALS: BP 105/59
[2021-02-15] MEDS: PANTOPRAZOLE 40 MG TAB PO SCH (10:00)
[2021-02-15] MEDS: PARoxetine 20 MG TAB PO SCH (10:00)
[2021-02-15] MEDS: rifAXIMin 550 MG TAB PO SCH ×2 (10:00→22:10)
[2021-02-15 13:00] VITALS: BP 120/67
[2021-02-15] MEDS: FOLIC ACID 1 MG, MULTIPLE VITAMIN 10 ML, MAGNESIUM SULF SDV 50% 8 MEQ, THIAMINE INJ 100... INJ SCH ×5 (15:30)
[2021-02-15 17:00] VITALS: BP 126/70
[2021-02-15 22:00] VITALS: BP 129/74
[2021-02-15] MEDS: lamoTRIgine 100 MG TAB PO SCH (22:10)
[2021-02-15] MEDS: cefTRIAXone 1GM/50ML D5W 50 ML IV SCH (22:10)
[2021-02-16 05:00] VITALS: BP 121/66
[2021-02-16] MEDS: LACTULOSE 20Gm/30ML SOLN PO SCH ×3 (06:32→22:34)
[2021-02-16 09:00] VITALS: BP 119/67
[2021-02-16] MEDS: rifAXIMin 550 MG TAB PO SCH ×2 (10:46→22:34)
[2021-02-16] MEDS: PANTOPRAZOLE 40 MG TAB PO SCH (10:47)
[2021-02-16] MEDS: PARoxetine 20 MG TAB PO SCH (10:47)
[2021-02-16 12:17] LABS: Basophils # (auto) 0 10 ^3/uL (0-0.2); Basophils % (auto) 0.2 % (0.0-2.0); Eosinophils # (auto) 0.3 10 ^3/uL (0-0.8); Hemoglobin 10.8 g/dL (12.2-16.2); Neutrophils % (auto) 78.4 % (37.0-80.0); Nucleated Red Blood Cells % 0.1 %; Red Cell Distribution Width 13.8 % (11.8-14.3); White Blood Cell 10.8 10^3/uL (4.4-10.8)
[2021-02-16 12:19] LABS: Eosinophils % (auto) 2.6 % (0.0-7.0); Hematocrit 30.8 % (36.0-46.0); Mean Corpuscular Hemoglobin 39.5 pg (28.0-32.0); Monocytes # (auto) 1.1 10 ^3/uL (0-1.3); Monocytes % (auto) 9.8 % (0.0-12.0); Neutrophils # (auto) 8.5 10 ^3/uL (1.6-8.6); Red Blood Cells 2.73 10^6/uL (4.0-5.20)
[2021-02-16 12:29] LABS: Mean Corpuscular Volume 112.8 fL (80.0-100.0)
[2021-02-16 12:30] VITALS: BP 111/69
[2021-02-16 12:32] LABS: Albumin 1.3 g/dL (3.4-5.0); Calcium 7.5 mg/dL (8.5-10.1); Potassium 4.3 mmol/L (3.5-5.1)
[2021-02-16 12:35] LABS: BUN/Creatinine Ratio 17.6; Bilirubin, Total 6.8 mg/dL (0.2-1.0); Total Protein 6.2 g/dL (6.4-8.2)
[2021-02-16 17:00] VITALS: BP 115/69
[2021-02-16 22:00] VITALS: BP 110/59
[2021-02-16] MEDS: cefTRIAXone 1GM/50ML D5W 50 ML IV SCH (22:34)
[2021-02-16] MEDS: lamoTRIgine 100 MG TAB PO SCH (22:34)
[2021-02-17 05:00] VITALS: BP 114/64
[2021-02-17] MEDS: LACTULOSE 20Gm/30ML SOLN PO SCH ×3 (06:42→23:41)
[2021-02-17 06:52] LABS: Basophils # (auto) 0 10 ^3/uL (0-0.2); Basophils % (auto) 0.1 % (0.0-2.0); Eosinophils # (auto) 0.3 10 ^3/uL (0-0.8); Hemoglobin 10.5 g/dL (12.2-16.2); Lymphocytes # (auto) 1.2 10 ^3/uL (0.4-5.4); Lymphocytes % (auto) 9.7 % (10.0-50.0); Monocytes # (auto) 1.2 10 ^3/uL (0-1.3); Neutrophils # (auto) 9.6 10 ^3/uL (1.6-8.6)
[2021-02-17 06:55] LABS: Eosinophils % (auto) 2.5 % (0.0-7.0); Mean Corpuscular Hemoglobin 39.5 pg (28.0-32.0); Mean Corpuscular Hgb Conc. 34.9 g/dL (32.0-36.0); Monocytes % (auto) 9.8 % (0.0-12.0); Neutrophils % (auto) 77.9 % (37.0-80.0); Red Blood Cells 2.65 10^6/uL (4.0-5.20); Red Cell Distribution Width 13.7 % (11.8-14.3); White Blood Cell 12.4 10^3/uL (4.4-10.8)
[2021-02-17 06:56] LABS: Mean Corpuscular Volume 113.2 fL (80.0-100.0)
[2021-02-17 07:11] LABS: Albumin 1.3 g/dL (3.4-5.0); Calcium 7.9 mg/dL (8.5-10.1); Potassium 4.3 mmol/L (3.5-5.1)
[2021-02-17 07:14] LABS: BUN/Creatinine Ratio 23.8
[2021-02-17 07:16] LABS: Bilirubin, Total 6.2 mg/dL (0.2-1.0)
[2021-02-17 07:17] LABS: Total Protein 5.9 g/dL (6.4-8.2)
[2021-02-17 09:00] VITALS: BP 112/66
[2021-02-17] MEDS: rifAXIMin 550 MG TAB PO SCH ×2 (10:45→23:21)
[2021-02-17] MEDS: PANTOPRAZOLE 40 MG TAB PO SCH (10:45)
[2021-02-17 13:00] VITALS: BP 120/63
[2021-02-17 17:00] VITALS: BP 108/62
[2021-02-17 22:00] VITALS: BP 117/66
[2021-02-17] MEDS: cefTRIAXone 1GM/50ML D5W 50 ML IV SCH (23:21)
[2021-02-17] MEDS: lamoTRIgine 100 MG TAB PO SCH (23:21)
[2021-02-18 05:00] VITALS: BP 112/62
[2021-02-18] MEDS: LACTULOSE 20Gm/30ML SOLN PO SCH ×2 (06:47→14:40)
[2021-02-18 08:00] VITALS: BP 115/66
[2021-02-18] MEDS: PANTOPRAZOLE 40 MG TAB PO SCH (10:49)
[2021-02-18] MEDS: rifAXIMin 550 MG TAB PO SCH (10:49)
[2021-02-18 12:00] VITALS: BP 111/68
[2021-02-18 15:44] VITALS: BP 111/68
[2021-02-18 16:00] VITALS: BP 120/65
== END 2021-02-18 20:57 | disposition home health service (06) | DRG 280 ==
LOC: ER 14:45 → EDBD 14:45 → EDUNIT# 14:45 → OVERFLOW 21:14 → WEST WING 22:52
PROVIDERS: ADMIT Nurse Practitioner; ATTEND Internal Medicine
PROC: 0W9G3ZZ Drainage of Peritoneal Cavity, Percutaneous Approach (ICD-10-PCS; principal; 2021-02-11)
DX: K70.31 Alcoholic cirrhosis of liver with ascites (principal); G93.41 Metabolic encephalopathy; D61.818 Other pancytopenia; E43 Unspecified severe protein-calorie malnutrition; E72.20 Disorder of urea cycle metabolism, unspecified; K65.2 Spontaneous bacterial peritonitis; D68.9 Coagulation defect, unspecified; K72.90 Hepatic failure, unspecified without coma; E87.1 Hypo-osmolality and hyponatremia; K80.20 Calculus of gallbladder without cholecystitis without obstruction; Z20.822 Contact with and (suspected) exposure to COVID-19; F20.9 Schizophrenia, unspecified; D53.9 Nutritional anemia, unspecified; F31.9 Bipolar disorder, unspecified; F41.9 Anxiety disorder, unspecified; R14.0 Abdominal distension (gaseous); Z90.710 Acquired absence of both cervix and uterus; Z88.2 Allergy status to sulfonamides; Z79.899 Other long term (current) drug therapy; Z68.21 Body mass index [BMI] 21.0-21.9, adult; Z91.010 Allergy to peanuts
CPT/HCPCS: 36415; 70450; 70551; 74176; 76700; 76942; 80053; 80320; 82140; 82150; 83605; 83690; 83986; 85025; 85610; 85730; 87040; 87205; 87426; 89051; 93005; 95819; 96365; 96366; 97110; 97163; 97530; G0378; J0696; J3430